=== PATIENT | female | born 1945 | race African-American/Black ===

== ENCOUNTER 2017-01-28 15:59 | Emergency (ER) | payer MEDICARE ==
[2017-01-28 16:08] VITALS: TEMP 98.3; BMI 27.4
--- NOTE | 2017-01-28 16:50 | PDOC ---
History of Present Illness <Rudy Trinh - Last Filed: 01/28/17 18:01> - General History Source: Patient Exam Limitations: No Limitations - History of Present Illness Initial Comments: 01/28/17 17:08 The patient is a 71 year old female with history of hypertension, arthritis, and anxiety, who presents to the ED complaining of 3 days of intermittent lightheadedness preceded by palpitations, improved with rest. She states she measured her blood pressure to be elevated to approximately 200/110 today, prompting her to come to the ED. The patient complains of lower extremity edema and headache since switching from Lisinopril to Amlodipine per her PCP's directions recently. Recently she has been taking the Lisinopril instead of the prescribed Norvasc. She denies any chest pain or shortness of breath. She denies nausea, abdominal pain, vomiting, or diarrhea. She denies fever, chills, or sick contacts. PCP: Dr. Evelyn Reynolds <Jina Abdul - Last Filed: 01/28/17 18:03> - General Chief Complaint: Lightheaded Stated Complaint: DIZZINESS, SOB Time Seen by Provider: 01/28/17 16:48 Past History - Past Medical History HTN: Yes - Psycho/Social/Smoking Cessation Hx Anxiety: No Suicidal Ideation: No Smoking History: Never smoked Hx Alcohol Use: No Drug/Substance Use Hx: No Substance Use Type: None <Rudy Trinh - Last Filed: 01/28/17 18:01> <Jina Abdul - Last Filed: 01/28/17 18:03> - Past Medical History Allergies/Adverse Reactions: Allergies Allergy/AdvReac Type Severity Reaction Status Date / Time No Known Allergies Allergy Verified 01/28/17 16:02 Home Medications: Ambulatory Orders Amlodipine Besylate [Norvasc -] 5 mg PO DAILY 01/28/17 Lisinopril 10 mg PO DAILY 01/28/17 Review of Systems - Review of Systems Able to Perform ROS?: Yes Comments:: 01/28/17 17:15 CONSTITUTIONAL: No fever, no chills, no fatigue EYES: No visual changes ENT: No ear pain, no sore throat CARDIOVASCULAR: +Lightheadedness, palpitations x 3 days. No chest pain or shortness of breath. RESPIRATORY: No cough, no SOB GI: No abdominal pain, no nausea, no vomiting, no constipation, no diarrhea GENITOURINARY: No dysuria, no frequency, no hematuria MUSCULOSKELETAL: No backpain, no joint pain, no myalgias SKIN: No rash NEURO: +Headache. No blurred vision, numbness, tingling, or focal weakness. <Jina Abdul - Last Filed: 01/28/17 18:03> *Physical Exam - Vital Signs Last Vital Signs Temp Pulse Resp BP Pulse Ox 98.3 F 84 18 167/97 98 01/28/17 16:00 01/28/17 16:00 01/28/17 16:00 01/28/17 16:00 01/28/17 16:00 <Rudy Trinh - Last Filed: 01/28/17 18:01> - Vital Signs Last Vital Signs Temp Pulse Resp BP Pulse Ox 98.3 F 84 18 167/97 98 01/28/17 16:00 01/28/17 16:00 01/28/17 16:00 01/28/17 16:00 01/28/17 16:00 - Physical Exam Comments: 01/28/17 17:16 CONSTITUTIONAL: Well-appearing; well-nourished; in no apparent distress HEAD: Normocephalic; atraumatic EYES: PERRL; EOM intact ENMT: External appears normal; normal oropharynx NECK: Supple; non-tender; no cervical lymphadenopathy CARD: Normal S1, S2; no murmurs, rubs, or gallops RESP: Normal chest excursion with respiration; breath sounds clear and equal bilaterally; no wheezes, rhonchi, or rales ABD: Soft, non-distended; non-tender; no palpable organomegaly, no palpable hernias EXT: Normal ROM in all four extremities; non-tender to palpation; distal pulses intact SKIN: Warm, dry, no rash NEURO: No focal neurological deficiencies. <Jina Abdul - Last Filed: 01/28/17 18:03> Medical Decision Making - Medical Decision Making 01/28/17 17:53 Patient is a 71-year-old female with history of hypertension, osteoporosis and anxiety who presents with intermittent dizziness associated with palpitations and elevated blood pressure for the past several days while taking lisinopril instead of prescribed Norvasc. In the ER, patient is awake and alert, slightly hypertensive initial evaluation. Physical exam reveals no evidence of focal neurological deficits, regular rhythm and rate, soft and nontender abdomen, no evidence of lower extremity edema and intact and equal distal pulses. Patient has refused any additional evaluation in the ER including EKGs, lab and radiological tests. Patient reports that she does not wish to be admitted to hospital and wishes to be released. I've discussed the risk of undiagnosed cardiac ailment or any other neurological ailment with the patient and advised her of the risk associated with that which includes but is not limited to myocardial infarction, stroke, arrhythmia, falls and head trauma and even . Patient expressed understanding and still wishes to sign out AMA and will follow-up with her primary care physician. Patient was accompanied by her son in the ER and sent to state in discussion. <Rudy Trinh - Last Filed: 01/28/17 18:01> *DC/Admit/Observation/Transfer - Discharge Dispostion Admit: No - Attestations Physician Attestion: 01/28/17 17:53 The documentation was prepared by the scribe under my direct supervision. I have reviewed the documentation which correctly represents the findings, medical decision-making and critical action taken by me. <Rudy Trinh - Last Filed: 01/28/17 18:01> - Attestations Scribe Attestion: 01/28/17 17:16 Documentation prepared by Jina Abdul, acting as medical secretary teacher for Rudy Trinh MD. <Jina Abdul - Last Filed: 01/28/17 18:03> Diagnosis at time of Disposition: Dizziness, Palpitations Hypertension Qualifiers: Hypertension type: essential hypertension Qualified Code(s): I10 - Essential ( primary) hypertension - Discharge Dispostion Disposition: AGAINST MEDICAL ADVICE - Referrals Referrals: Evelyn Reynolds MD [Primary Care Provider] - - Patient Instructions Printed Discharge Instructions: DI for High Blood Pressure, DI for Dizziness- Nonvertigo, DI for Palpitations Additional Instructions: Your leaving against medical advise. You have refused additional evaluation with EKG, lab tests and radiological tests. Uric risk of undiagnosed cardiac or neurological conditions. You're at risk of heart attack, stroke, abnormal cardiac rhythm, frequent falls, head trauma even . Please follow-up with your primary care physician promptly. Return immediately to the ER for worsening symptoms.
[2017-01-28 17:38] VITALS: BP 155/92; PULSE 68
== END 2017-01-28 18:09 | disposition left against medical advice (07) ==
LOC: JER 15:59 → SUPCPDRO 15:59 → JER 18:09
DX: I10 Essential (primary) hypertension (principal); M12.9 Arthropathy, unspecified
CPT/HCPCS: 99282-25